=== PATIENT | female | born 1945 | race Caucasian/White ===

== ENCOUNTER 2018-07-10 03:19 | Inpatient (IN) ==
[2018-07-10] MEDS ORDERED: 0.9 % Sodium Chloride 1,000 ML IVC ONE (04:01)
[2018-07-10] MEDS ORDERED: Metoclopramide 10 MG/2 ML VIAL IVP ONE (04:03)
--- NOTE | 2018-07-10 04:10 | Emergency Department Note ---
Disposition Clinical Impression: Vertigo Nausea and vomiting Qualifiers: Vomiting type: unspecified Vomiting Intractability: non-intractable Qualified Code(s): R11.2 - Nausea with vomiting, unspecified Headache Qualifiers: Headache type: unspecified Headache chronicity pattern: acute headache Intractability: not intractable Qualified Code(s): R51 - Headache Disposition: Admitted As Inpatient Condition: Fair Referrals: Kenneth Nathan DO [Primary Care Provider] - Forms: ED Satisfaction Letter Time of Disposition: 06:28 Nausea/Vomiting/Diarrhea HPI - General Chief complaint: ED Nausea/Vomiting/Diarrhea Stated complaint: n v weakness Time Seen by Provider: 07/10/18 03:21 Source: patient, EMS Mode of arrival: EMS Limitations: no limitations Nursing Notes Reviewed: Yes Vital Signs Reviewed: Yes - History of Present Illness HPI Narrative: 73 y.o. female with PMHx significant for vertigo presents to the ED c/o sudden onset of nausea and vomiting x 1200 yesterday. She reports 5 episodes of vomit since onset and states it is dark green in color and non-bloody. She notes a small amount of LLQ abd pain at onset, but states it lasted only a short time and denies any abd pain now. She reports associated dizziness, diffuse headache , and fatigue. She reports generalized weakness, but denies any focal weakness or new onset neurological symptoms. She denies any recent travel, food poisoning , or sick contacts. Pt Subjective Complaint: nausea, vomiting Onset (ago): hour(s) Description of emesis: food contents, bilious Associated Abdominal Pain: Yes (mild LLQ at onset, denies pain now) Associated symptoms: Reports: headaches, nausea/vomiting. Denies: chest pain, cough, diaphoresis, fever/chills, shortness of breath - Related Data Home Medications Medication Instructions Recorded Confirmed Buspirone HCl 03/15/17 Gabapentin [Gralise] 03/15/17 Hydrochlorothiazide 03/15/17 Lorazepam 03/15/17 Losartan mg PO DAILY 03/15/17 Metoprolol [Lopressor] 03/15/17 Oxycodone HCl/Acetaminophen 10 mg PO BID 03/15/17 03/15/17 Simvastatin 03/15/17 Venlafaxine HCl [Venlafaxine HCl 03/15/17 ER] Previous Rx's Medication Instructions Recorded Albuterol Sulfate [Albuterol 2 puff IH QID #1 inhaler 03/15/17 Inhaler] Azithromycin [Azithromycin 6-Tab 250 mg PO PER PKG DI #6 tab 03/15/17 Pack] Benzonatate [Tessalon] 200 mg PO TID PRN #20 capsule 03/15/17 predniSONE [PredniSONE] 20 mg PO BID #10 tablet 03/15/17 Allergies Allergy/AdvReac Type Severity Reaction Status Date / Time Penicillins [PCN] Allergy Rash Verified 03/15/17 19:20 Sulfa (Sulfonamide Allergy Rash Verified 03/15/17 19:20 Antibiotics) All systems ED: reviewed and negative except as stated. Past Medical History - Past Medical History Attestation: Yes The following information was validated with the patient. Source: patient Medical history: Reports: arthritis, fibromyalgia, hyperlipidemia, hypertension - Social History Smoking Status: Never smoker Smokeless Tobacco Status: No Alcohol use: Reports: none Drug use: Reports: none Physical Exam - General Limitations: no limitations General appearance: alert, in no apparent distress - Head Head exam: atraumatic, normocephalic, normal inspection - Eye Eye exam: Present: normal appearance, PERRL, EOMI - ENT ENT exam: normal exam, normal oropharynx, mucous membranes moist - Neck Neck exam: Present: normal inspection, full ROM, trachea midline - Chest Chest inspection: Present: normal inspection, symmetric chest wall rise - Respiratory Respiratory exam: Present: normal lung sounds bilaterally - Cardiovascular Cardiovascular exam: Present: regular rate, normal rhythm, normal heart sounds - Abdominal Exam Abdominal exam: Present: soft, Non-Tender. Absent: tenderness, distention, guarding, rebound, rigidity - Extremities Exam Extremities exam: Present: normal inspection. Absent: tenderness, pedal edema - Neurological Exam Neurological exam: Present: alert, oriented X3, CN II-XII intact. Absent: motor sensory deficit - Expanded Neurological Exam Patient oriented to: Present: person, place Speech: Present: fluid speech Cranial nerves: EOM function (II, III, IV, ): Normal, facial sensation (V): Normal, facial palsy (VII): Normal, spinal accessory function (XI): Normal, tongue deviation (XII): Normal Cerebellar function: finger to nose: Normal, heel to cedeño: Abnormal Left, Abnormal Right (mild) Motor strength - LUE: 5/5 Motor strength - RUE: 5/5 Motor strength - LLE: 4/5 Motor strength - RLE: 4/5 Upper motor neuron exam: pronator drift: Absent bilaterally Sensory exam upper extremity: light touch: Normal Sensory exam lower extremity: light touch: Normal Coma Scale Eye Opening: Spontaneous Coma Scale Motor Response: Obeys Commands Coma Scale Verbal Response: Oriented Coma Scale Total: 15 - Psychiatric Psychiatric exam: Present: normal affect, normal mood - Skin Skin exam: Present: warm, dry, intact, normal color Course Course Narrative: Patient seen and examined. Complaining of nausea, vomiting, weakness and headache. She does not normally get headaches. Feels her nausea and vomiting is more secondary to this. She is also incidentally had 3 weeks now of intermittent vertigo. Also had an episode of blurry vision. Basic lab work was ordered. Also get a CT of the head. Neurologic exam shows possible mild ataxia in the left upper extremity. Unable to assess for ataxia in the lower extremities due to patient's severe arthritis in the knees. - Reevaluation(s) Reevaluation #1: Upon reexamination, patient is feeling slightly better with her headache and nausea. However states her nausea is coming back. Zofran ordered. Patient's lab work, imaging unremarkable. Due to the long duration of her symptoms as well as now having a headache without normally getting headaches, I am concerned about possible central cause of her vertigo. We will admit for MRI of the head to evaluate for possible cerebellar stroke. We will give a dose of aspirin here. I discussed with hospitalist Dr. Joseph who has accepted patient for admission. Time: 06:25 Vital Signs Temperature 98.3 F 07/10/18 03:25 Pulse Rate 64 07/10/18 03:25 Respiratory Rate 16 07/10/18 03:25 Blood Pressure 129/57 07/10/18 03:25 O2 Sat by Pulse Oximetry 95 07/10/18 03:25 Temperature 98.3 F 07/10/18 03:25 Pulse Rate 66 07/10/18 04:35 Respiratory Rate 18 07/10/18 04:35 Blood Pressure 128/80 07/10/18 04:35 O2 Sat by Pulse Oximetry 95 07/10/18 04:35 Oxygen Delivery Oxygen Delivery Room Air Nausea/Vomiting/Diarrhea - Medical Records Medical records reviewed: Yes I reviewed the patient's medical records. - Lab Data Lab results reviewed: Yes I reviewed the patient's lab results. Result diagrams: 07/10/18 03:35 07/10/18 03:35 Lab Results 07/10/18 07/10/18 Range/Units 03:35 03:35 WBC 11.8 H (4.3-11.1) K/mcL RBC 5.11 H (3.82-4.97) M/mcL Hgb 15.4 (11.5-15.4) g/dL Hct 45.1 H (35.3-44.9) % MCV 88.3 (83.0-100.0) fL MCH 30.1 (28.0-33.3) pg MCHC 34.1 (31.6-35.5) g/dL RDW 13.2 (11.5-14.5) % Plt Count 231 (140-400) K/mcL MPV 11.5 (9.4-12.4) fL Immature Gran % 0.5 (0-4) % Seg Neutrophils % 79.3 % Lymphocytes % 13.9 % Monocytes % 5.6 % Eosinophils % 0.4 % Basophils % 0.3 % Neutrophils # 9.4 H (1.6-8.9) K/mcL Lymphocytes # 1.6 (0.6-4.6) K/mcL Monocytes # 0.7 (0.0-1.3) K/mcL Eosinophils # 0.1 (0.0-0.6) K/mcL Basophils # 0.0 (0.0-0.2) K/mcL Sodium 136 (136-145) mEq/L Potassium 3.9 (3.5-5.1) mEq/L Chloride 101 (98-107) mEq/L Carbon Dioxide 21 L (23-29) mEq/L BUN 25 H (8-23) mg/dL Creatinine 1.03 (0.60-1.20) mg/dL Est GFR ( Amer) > 60 (> 60) Est GFR (Non-Af Amer) 53 L (> 60) BUN/Creatinine Ratio 24 (6-26) Glucose 158 H (70-105) mg/dL Calculated Osmolality 290 (280-300) Calcium 10.1 (8.6-10.3) mg/dL Total Bilirubin 0.8 (0.3-1.0) mg/dL AST 19 (13-39) Units/L ALT 22 (7-52) Units/L Alkaline Phosphatase 84 (34-104) Units/L Serum Total Protein 8.1 (6.4-8.9) g/dL Albumin 4.0 (3.5-5.7) g/dL Globulin 4.1 H (2.4-3.5) g/dL Albumin/Globulin Ratio 1.0 L (1.1-2.2) Lipase 17 (11-82) Units/L - Radiology Data Radiology results reviewed: Yes I reviewed the patient's radiology results. Head CT 07/10/18 04:42 IMPRESSION: Small vessel chronic ischemic changes without acute hemorrhage or definite evidence for acute ischemia. Small foci of acute ischemia cannot be excluded. D/ / Mikey Tidwell MD / Mikey Tidwell MD Interpreting Provider: Mikey Tidwell MD Attestation Statement - Attestation Attestation: I, Juan Weinstein, examined this patient and my medical decision-making was reviewed with the PLANT OPERATOR/PA/Advanced Practice Nurse/Resident Physician. I agree with the documented findings, disposition and treatment plan as described except to the extent set forth below. 73-year-old female presents emergency Department with concerns of vertigo. Patient states her symptoms have been intermittent over the past 2-3 weeks. Patient states the room will spin with minimal movement, lasting several minutes at a time before resolving. He will receive sure. The changes in medications. Patient has difficulty with ambulation secondary to her unsteadiness. No focal neurologic deficits prior to arrival. CT of the head was negative for acute mass or intracranial hemorrhage. Patient will be admitted to the hospital for further care and evaluation of her vertigo to rule out posterior CVA or other pathology.
[2018-07-10 04:17] LABS: Basophils % 0.3 %; Eosinophils # 0.1 K/mcL (0.0-0.6); Eosinophils % 0.4 %; Hematocrit 45.1 % (35.3-44.9); Hemoglobin 15.4 g/dL (11.5-15.4); Immature Granulocytes % 0.5 % (0-4); Lymphocytes # 1.6 K/mcL (0.6-4.6); Lymphocytes % 13.9 %; Mean Corpuscular HGB Conc 34.1 g/dL (31.6-35.5); Mean Corpuscular Hemoglobin 30.1 pg (28.0-33.3); Mean Corpuscular Volume 88.3 fL (83.0-100.0); Mean Platelet Volume 11.5 fL (9.4-12.4); Monocytes # 0.7 K/mcL (0.0-1.3); Monocytes % 5.6 %; Neutrophils # 9.4 K/mcL (1.6-8.9); Platelet Count 231 K/mcL (140-400); Red Blood Count 5.11 M/mcL (3.82-4.97); Red Cell Distribution Width 13.2 % (11.5-14.5); Segmented Neutrophils % 79.3 %
[2018-07-10 04:26] LABS: Alanine Aminotransferase 22 Units/L (7-52); Alkaline Phosphatase 84 Units/L (34-104); Aspartate Amino Transferase 19 Units/L (13-39); BUN/Creatinine Ratio 24 (6-26); Bilirubin,Total 0.8 mg/dL (0.3-1.0); Blood Urea Nitrogen 25 mg/dL (8-23); Calcium 10.1 mg/dL (8.6-10.3); Carbon Dioxide 21 mEq/L (23-29); Chloride 101 mEq/L (98-107); Globulin 4.1 g/dL (2.4-3.5); Glucose 158 mg/dL (70-105); Lipase 17 Units/L (11-82); Osmolality,Calculated 290 (280-300); Potassium 3.9 mEq/L (3.5-5.1); Sodium 136 mEq/L (136-145); Total Protein 8.1 g/dL (6.4-8.9); eGFR For Non-African Americans 53 (> 60)
[2018-07-10] MEDS ORDERED: Ondansetron 4 MG/2 ML VIAL IVP ONE (05:48)
[2018-07-10] MEDS ORDERED: Aspirin 325 MG TABLET PO ONE (05:52)
[2018-07-10] MEDS ORDERED: *HR* OxyCODONE Immed Rel 5 MG TABLET PO PRN (08:01)
[2018-07-10] MEDS ORDERED: Naloxone 0.4 MG/ML INJ IVP PRN (08:01)
[2018-07-10] MEDS ORDERED: Acetaminophen 325 MG TABLET PO PRN (08:01)
--- NOTE | 2018-07-10 08:35 | Internal Med History&Physical ---
Date of Encounter: 07/10/18 Time of Encounter: 08:53 Internal Medicine - H&P: HPI Chief complaint: Vertigo Admitted From: Home Plans for Post Hospital Care: Home History of present illness: Ms. Porras is a 73 year old female with PMH of Anxiety/Depression HLD, HTN , chronic back pain who presented with 3 weeks onset of vertigo and one-day history of nausea and vomiting. She reports history of vertigo which started 3 weeks ago while at rest, and the flat. She however does not associate it with any air heat, tinnitus, or ear discharge. She reports having chronic"runny" ears, but no hx of chronic ear infection. She denies imbalance in gait but does not walk more than few feet to the bathroom and back due to her chornic back pain and Left lower leg injury in the past. She denies any speech/motor or sensory complains, she has no confusion She denies chest, cardiac, gastrointestinal, or urologic symptoms. Workup in the ER showed mild leukocytosis, otherwise unremarkable. Head CT shows chronic microvascular changes but cannot rule out a small foci of infarct. She is placed on observation to rule out a posterior circulation stroke. At the time of review, she is currently asymptomatic. Past Med Surg Social Fam HX - Past Medical History Medical history: arthritis, fibromyalgia, hyperlipidemia, hypertension - Social History Smoking Status: Never smoker Smokeless Tobacco Status: No Alcohol use: none Drug use: none Internal Medicine - H&P: Meds Albuterol Sulfate [Albuterol Inhaler] 2 puff IH QID #1 inhaler 03/15/17 [Rx] Buspirone HCl [Buspar] 15 mg PO BID 03/15/17 [History] LORazepam [Ativan] 0.5 mg PO TID PRN 03/15/17 [History] Losartan Potassium [Cozaar] 100 mg PO DAILY 03/15/17 [History] OxyCODONE/APAP 10/325 [Percocet 10/325 MG] 0.5 - 1 tab PO BID PRN 03/15/17 [ History] Simvastatin [Zocor] 20 mg PO DAILY 03/15/17 [History] hydroCHLOROthiazide [Hydrochlorothiazide] 25 mg PO DAILY 03/15/17 [History] Gabapentin [Neurontin] 300 mg PO BID 07/10/18 [History] Metoprolol Tartrate 50 mg PO TID 07/10/18 [History] Venlafaxine [Effexor] 75 mg PO BID 07/10/18 [History] 3 Allergy/AdvReac Type Severity Reaction Status Date / Time Penicillins [PCN] Allergy Rash Verified 07/10/18 09:16 Sulfa (Sulfonamide Allergy Rash Verified 07/10/18 09:16 Antibiotics) All Systems PM: A 10-system review of systems was performed and is negative for pertinent findings except as documented above in the HPI. - Constitutional Constitutional: as per HPI - EENT Eyes: as per HPI Ears: as per HPI Nose, mouth and throat: as per HPI - Cardiovascular Cardiovascular ROS IM: as per HPI - Respiratory Respiratory: as per HPI - Gastrointestinal Gastrointestinal: as per HPI - Genitourinary Genitourinary: as per HPI - Musculoskeletal Musculoskeletal ROS IM: as per HPI - Integumentary Integumentary IM: as per HPI - Neurological Neurological ROS: as per HPI - Hematologic/Lymphatic Hematologic/Lymphatic: as per HPI - Constitutional Vitals: Temp Pulse Resp BP Pulse Ox 98.3 F 65 18 100/64 95 07/10/18 03:25 07/10/18 06:37 07/10/18 06:37 07/10/18 06:37 07/10/18 06:37 General appearance: Present: A&O X 3, morbidly obese, pleasant, no acute distress Exam: see exam details below - Head Head exam: Present: atraumatic, normocephalic - Eye Eye exam: Present: PERRL, conjuntiva pink, sclera anicteric. Absent: nystagmus Pupils: Present: PERRL - Neck Neck exam general surgery: Present: supple, trachea midline. Absent: lymphadenopathy - Respiratory Respiratory exam: Present: CTAB. Absent: accessory muscle use, rales, rhonchi, wheezes - Cardiovascular Cardiovascular exam: Present: RRR, +S1, +S2. Absent: diastolic murmur, gallop, rubs, systolic murmur - GI/Abdominal GI/Abdominal exam: Present: normal bowel sounds, soft, no peritoneal signs. Absent: distended, tenderness - Extremities Exam Extremities exam: Present: warm, radial pulses palpable and symmetrical. Absent : calf tenderness, cyanotic Additional comments: Chronic venostasis changes - Neurological Exam Neurological exam: Present: alert, CN II-XII intact, oriented X3, no focal deficits. Absent: pronater drift, facial droop, speech deficit Additional comments: Gait is not tested, patient is usually non-ambulatory Power is at least 3/5 in LE Power in UE is WNL, no drift She has no nystagmus she has no signs of cerebellar dysfunction. - Skin Skin exam: Present: dry, intact Internal Med - H&P Results - Labs CBC & Chem 7: 07/10/18 03:35 07/10/18 03:35 - Assessment and plan (1) CVA (cerebral vascular accident) Current Visit: Yes Status: Acute Assessment and plan: Patient who presented with vertigo of about 3 weeks duration but developed nausea and vomiting and worsening of her vertigo last night She ahs no speech deficits, no sensory or motor deficits at this time Brain MRi showed acute temporo-occipital infarct, right basal ganglia infarct as well as left basal ganglia Received ASA in the ER , full dose Continue ASA 81mg daily Lipitor 20mg HS Lipid panel a.m Carotid USS scheduled ECHO scheduled Monitor NIHSS Hold antihypertensives for now Continue to monitor PTOT eval requested Neurology consulted Qualifiers: Qualified Code(s): I63.9 - Cerebral infarction, unspecified (2) HTN (hypertension) Current Visit: Yes Status: Chronic Assessment and plan: Hold meds for now Qualifiers: Qualified Code(s): I10 - Essential (primary) hypertension (3) HLD (hyperlipidemia) Current Visit: Yes Status: Chronic Assessment and plan: continue home meds when confirmed Qualifiers: Qualified Code(s): E78.5 - Hyperlipidemia, unspecified (4) Nausea and vomiting Current Visit: Yes Status: Acute Assessment and plan: Dylon jhaverin Qualifiers: Qualified Code(s): R11.2 - Nausea with vomiting, unspecified (5) Vertigo Current Visit: Yes Status: Acute Assessment and plan: See CVA (6) Anxiety and depression Current Visit: Yes Status: Chronic Assessment and plan: continue home meds when confirmed - Time Spent With Patient Total time spent is greater than 50% in coordination of care (as documented) at patient's floor/unit and/or counseling patient:
[2018-07-10] MEDS ORDERED: *HR* LORazepam 2 MG/ML VIAL IVP ONE (09:40)
[2018-07-10] MEDS ORDERED: 0.9 % Sodium Chloride 1,000 ML IVC SCH (10:30)
[2018-07-10] MEDS: Gabapentin 300 MG CAPSULE PO SCH ×2 (12:05→21:00)
--- NOTE | 2018-07-10 12:17 | Neurology - Consult Note ---
<Marcela Barbosa P - Last Filed: 07/10/18 16:23> Date of Encounter: 07/10/18 Time of Encounter: 11:45 Assessment and Plan (1) CVA (cerebral vascular accident) Current Visit: Yes Status: Acute She has vertigo lasting for a few minutes with room spinning , this time she has worst vertigo associated with nausea and vomiting She has no focal neurological deficit, no slurring of speech She has problem with body balance , but vertigo and nausea/ vomiting has been resolved MRI brain: showed acute temporo-occipital infarct, right& left basal ganglia infarct Echo and carotid Doppler report awaited Plan : CTA head and neck ordered ordered aspirin and plavix Qualifiers: CVA mechanism: unspecified Qualified Code(s): I63.9 - Cerebral infarction, unspecified (2) Vertigo Current Visit: Yes Status: Acute The patient has on and off vertigo for last 3 weeks This time she has worst episode of vertigo, associated with nausea and vomiting She has problem with body balance She is symptomatically better now. She has no more nausea , vomiting and vertigo now. We are working on it (possibly stroke related vertigo: small acute infarct in temporoccipital lobe ) History of Present Illness Chief complaint: Vertigo HPI: Ms. Porras is a 73 year old female admitted to [facility] via ED for nausea, vomiting and vertigo .She is known patient of HTN ,chronic back pain who presented this time for vertigo associated with nausea ad multiple episodes of vomiting. She states that the vertigo lasted for about 1-2 minuets and she has had dizziness and the room was spinning. She had h/o on and off vertigo for last 3 weeks , but this time more severe vertigo with nausea and vomiting. She admits mild headache, neck pain and balance problem while walking , but muh better than before She denies any focal neurological deficit/ limb weakness, slurring of speech, tinnitus or ear fullness, fall injury , fever, palpitation or irregular heart rate ,SOB, chest pain. Today she was sleeping comfortably in bed , states that her symptoms are better than before . She doesn't have vertigo right now, no nausea and vomiting . Her BP 128/75 , pul 62, Tem 98 F, WBC 11.8, Na 136, K 3.9BUN 25, creatinine 1.03 , glucose 158 . Brain MRI:Small area of acute infarct within the left temporo-occipital lobe. Tiny infarct within right basal ganglia. Possible additional tiny infarct within left basal ganglia. No convincing evidence of hemorrhage.Chronic small vessel ischemic white matter disease and diffuse cerebral volume loss. CT head : Small vessel chronic ischemic changes without acute hemorrhage or definite evidence for acute ischemia. Small foci of acute ischemia cannot be ex cluded. Past Med Surg Social Fam HX - Past Medical History Medical history: arthritis, fibromyalgia, hyperlipidemia, hypertension Psychiatric history: anxiety, depression - Past Surgical History Surgical History: appendectomy, cancer surgery Additional surgical history: ortho surgery - Social History Smoking Status: Never smoker Smokeless Tobacco Status: No Alcohol use: none Drug use: none Medications and Allergies Albuterol Sulfate [Albuterol Inhaler] 2 puff IH QID #1 inhaler 03/15/17 [Rx] Buspirone HCl [Buspar] 15 mg PO BID 03/15/17 [History] LORazepam [Ativan] 0.5 mg PO TID PRN 03/15/17 [History] Losartan Potassium [Cozaar] 100 mg PO DAILY 03/15/17 [History] OxyCODONE/APAP 10/325 [Percocet 10/325 MG] 0.5 - 1 tab PO BID PRN 03/15/17 [ History] Simvastatin [Zocor] 20 mg PO DAILY 03/15/17 [History] hydroCHLOROthiazide [Hydrochlorothiazide] 25 mg PO DAILY 03/15/17 [History] Gabapentin [Neurontin] 300 mg PO BID 07/10/18 [History] Metoprolol Tartrate 50 mg PO TID 07/10/18 [History] Venlafaxine [Effexor] 75 mg PO BID 07/10/18 [History] 3 Allergy/AdvReac Type Severity Reaction Status Date / Time Penicillins [PCN] Allergy Rash Verified 07/10/18 09:16 Sulfa (Sulfonamide Allergy Rash Verified 07/10/18 09:16 Antibiotics) All Systems: The remainder of the systems were reviewed and are negative Physical Examination - Vital Signs Vital Signs: Initial Vital Signs Temp Pulse Resp BP Pulse Ox 98.3 F 64 16 129/57 95 07/10/18 03:25 07/10/18 03:25 07/10/18 03:25 07/10/18 03:25 07/10/18 03:25 - Constitutional General appearance: comfortable - Neurologic Sensorimotor examination: intact Detailed motor examination: full strength in all major muscle groups Motor examination - right side: 03/07: deltoids, biceps, triceps, wrist flexion, wrist extension, instrument processing tech, hip flexors, tibialis Anterior, quadriceps, toe extension (EHL), plantarflexion Motor examination - left side: 55: deltoids, biceps, triceps, wrist flexion, wrist extension, hip flexors, instrument processing tech, quadriceps Reflexes: Biceps: 2+, Triceps: 2+, Brachioradialis: 2+, Patella: 2+, Achilles: 2 + Mental Status Examination: awake, alert, oriented to person, oriented to place, oriented to time, follows commands appropriately, answers questions appropriately, no aphasia Cranial nerve examination: PERRL, EOMI, visual horan intact, sensory to face intact Cerebellar examination: no dysmetria, performs finger to nose and heel to cedeño symmetrically without ataxia Results - Laboratory Findings CBC and BMP: 07/10/18 03:35 07/10/18 03:35 Abnormal lab findings: Abnormal lab results WBC 11.8 K/mcL (4.3-11.1) H 07/10/18 03:35 RBC 5.11 M/mcL (3.82-4.97) H 07/10/18 03:35 Hct 45.1 % (35.3-44.9) H 07/10/18 03:35 Neutrophils # 9.4 K/mcL (1.6-8.9) H 07/10/18 03:35 Carbon Dioxide 21 mEq/L (23-29) L 07/10/18 03:35 BUN 25 mg/dL (8-23) H 07/10/18 03:35 Est GFR (Non-Af Amer) 53 (> 60) L 07/10/18 03:35 Glucose 158 mg/dL (70-105) H 07/10/18 03:35 Globulin 4.1 g/dL (2.4-3.5) H 07/10/18 03:35 Albumin/Globulin Ratio 1.0 (1.1-2.2) L 07/10/18 03:35 Consult Discharge Plan - Plan Referrals: Kenneth Nathan DO [Primary Care Provider] - <Shaheen Holland I - Last Filed: 07/11/18 14:42> Date of Encounter: 07/10/18 Assessment and Plan (1) CVA (cerebral vascular accident) Current Visit: Yes Status: Acute Pt was seen and examined, my medical decision was reviewed with the Resident Physician, I agree with the documented findings, disposition and treatment plas as described except to the extent set forth below No significant focal motor deficit noted on neurological examination considering MRI findings certainly we need to exclude the possibility of any embolic source in particularly she would need echocardiogram and carotid duplex , at the same time continue to monitor for any atrial fibrillation continue to monitor the blood pressure and blood sugar and keep it stable in the meantime continue on aspirin along with the Plavix Further recommendation will depend on the result of echocardiogram and carotid duplex We will follow the patient with you Shaheen Holland MD Qualifiers: CVA mechanism: embolism Laterality of affected vessel: unspecified History of Present Illness HPI: Ms. Porras is a 73 year old female All Systems: The remainder of the systems were reviewed and are negative Physical Examination - Vital Signs Vital Signs: Initial Vital Signs Temp Pulse Resp BP Pulse Ox 98.3 F 64 16 129/57 95 07/10/18 03:25 07/10/18 03:25 07/10/18 03:25 07/10/18 03:25 07/10/18 03:25 Results - Laboratory Findings CBC and BMP: 07/11/18 02:50 07/11/18 02:50 Abnormal lab findings: Abnormal lab results WBC 11.8 K/mcL (4.3-11.1) H 07/10/18 03:35 RBC 5.11 M/mcL (3.82-4.97) H 07/10/18 03:35 Hct 45.1 % (35.3-44.9) H 07/10/18 03:35 Neutrophils # 9.4 K/mcL (1.6-8.9) H 07/10/18 03:35 Carbon Dioxide 21 mEq/L (23-29) L 07/10/18 03:35 BUN 25 mg/dL (8-23) H 07/10/18 03:35 Est GFR (Non-Af Amer) 53 (> 60) L 07/10/18 03:35 Glucose 158 mg/dL (70-105) H 07/10/18 03:35 POC Glucose 104 mg/dL (70-99) H 07/10/18 11:57 Globulin 4.1 g/dL (2.4-3.5) H 07/10/18 03:35 Albumin/Globulin Ratio 1.0 (1.1-2.2) L 07/10/18 03:35
[2018-07-10] MEDS ORDERED: Isovue-370 500 ML INFUS..BTL IV ONE (12:28)
[2018-07-10 19:56] LABS: Bilirubin,Urine Negative (Negative); Blood,Urine Negative (Negative); Clarity,Urine Clear (Clear); Color,Urine Yellow (Yellow); Glucose,Urine (UA) Normal (Normal); Ketones,Urine Negative (Negative); Leukocyte Esterase,Urine Small (Negative); Nitrite,Urine Negative (Negative); Protein,Urine Negative (Neg-Trace); Specific Gravity,Urine 1.018 (1.010-1.025); Urobilinogen,Urine Normal (Normal)
[2018-07-10 19:58] LABS: Bacteria,Urine None Seen per hpf (None-Few); Hyaline Casts,Urine None Seen per lpf (None-Few); RBC,Urine 0-3 per hpf (0-3); Squamous Epithelial Cell,Urine Many per lpf (None-Few)
[2018-07-11] MEDS: *HR* LORazepam 0.5 MG TABLET PO PRN ×2 (00:44→22:00)
[2018-07-11] MEDS: *HR* OxyCODONE/APAP 10/325 TABLET PO PRN (04:38)
[2018-07-11 04:44] LABS: BUN/Creatinine Ratio 22 (6-26); Blood Urea Nitrogen 21 mg/dL (8-23); Calcium 9.1 mg/dL (8.6-10.3); Carbon Dioxide 24 mEq/L (23-29); Chloride 103 mEq/L (98-107); Glucose 89 mg/dL (70-105); Osmolality,Calculated 286 (280-300); Potassium 3.4 mEq/L (3.5-5.1); Sodium 137 mEq/L (136-145); eGFR For Non-African Americans 58 (> 60)
[2018-07-11 04:46] LABS: Chol/HDL Ratio 3.6 (0-4.9)
[2018-07-11 04:51] LABS: Basophils % 0.3 %; Eosinophils # 0.2 K/mcL (0.0-0.6); Eosinophils % 2.3 %; Hematocrit 41.4 % (35.3-44.9); Hemoglobin 13.7 g/dL (11.5-15.4); Immature Granulocytes % 0.5 % (0-4); Lymphocytes # 2.5 K/mcL (0.6-4.6); Mean Corpuscular HGB Conc 33.1 g/dL (31.6-35.5); Mean Corpuscular Hemoglobin 29.9 pg (28.0-33.3); Mean Corpuscular Volume 90.4 fL (83.0-100.0); Mean Platelet Volume 11.2 fL (9.4-12.4); Monocytes # 0.8 K/mcL (0.0-1.3); Monocytes % 9.2 %; Neutrophils # 5.2 K/mcL (1.6-8.9); Platelet Count 196 K/mcL (140-400); Red Blood Count 4.58 M/mcL (3.82-4.97); Red Cell Distribution Width 13.7 % (11.5-14.5); Segmented Neutrophils % 59.7 %
[2018-07-11] MEDS ORDERED: *HR* Enoxaparin 40 MG/0.4 ML SYRINGE SQ SCH (06:00)
[2018-07-11] MEDS: Gabapentin 300 MG CAPSULE PO SCH ×2 (09:16→22:00)
[2018-07-11] MEDS: Aspirin Enteric Coated 81 MG Tablet PO SCH (09:16)
--- NOTE | 2018-07-11 12:00 | Internal Med Progress Note ---
Hospitalist Progress Note - Encounter Date of Encounter: 07/11/18 Time of Encounter: 11:00 - Subjective Interval History: cont to deny any weakness, numbness, tingling. continued dizziness with ambulation and nausea. she refused cta head/neck bc she had it once before and dye made her sick, understand importance of imaging. agreeable to CUS. - Exam Vitals: Temp Pulse Resp BP Pulse Ox 98.5 F 64 18 131/60 95 07/11/18 07:47 07/11/18 07:47 07/11/18 07:47 07/11/18 07:47 07/11/18 07:47 Exam: General: awake, alert, appears stated age HEENT:EOM intact pupils equal, round, moist mucus membranes, clear oropharynx Neck: supple, trachea midline Cardiovascular:regular rate and rhythm, normal S1 & S2, no rubs,+systolic murmur heard best on right border, No JVD. no lower extremity edema Lungs:Normal breath sounds, no wheezes, or crackles. Normal respiratory effort Neurological: AAOx3, CN grossly intact, no focal deficits, clear speech, strength 5/5 throughout and sensation intact throughout all ext Skin:Normal color, no rash, no pallor - Assessment and Plan (1) CVA (cerebral vascular accident) Current Visit: Yes Status: Acute Assessment and Plan: Acute Temporo occipital CVA, R basaal ganglia CVA, L Basal Ganglia CVA She has vertigo but no speech deficits, no sensory or motor deficits at this time Head CT no acute findings Brain MRi showed acute temporo-occipital infarct, right basal ganglia infarct as well as left basal ganglia Received ASA in the ER , full dose Continue ASA 81mg daily Lipitor 20mg HS Lipid panel a.m Carotid USS scheduled- pending ECHO 07/11 EF 65%, indeterminant diastolic function, mild MR, Mild mitral stenosis , SUBOPTIMIZED PARTIALLY MOBILE ECHODENSITY ON LV SIDE OF MITRAL VALVE APPEARS SIMILAR TO MITRAL CALCIFICATION--ángel recommended Monitor NIHSS permissive HTN Continue to monitor PTOT eval requested Neurology consulted-cont asa + plavix, statin, CTA head and neck ordered but pt refused Cards consulted 07/11 for ángel to further evaluate density on mitral valve, d/w dr Sun and she will be put on scheduled for friday update provided to neuro awaiting neuro call back re ok to increase lovenox to therapeutic until confirm not thrombus from neuro prospective -pt update on echo results--she is agreeable to work up of stroek and ÁNGEL here-- but she would like to follow up with [facility] upon dc (2) Nausea and vomiting Current Visit: Yes Status: Acute Assessment and Plan: 2/2 acute occipato temporal CVA dizziness -Zofran prn (3) Vertigo Current Visit: Yes Status: Acute Assessment and Plan: See CVA (4) HTN (hypertension) Current Visit: Yes Status: Chronic Assessment and Plan: Hold meds for now permissive htn (5) HLD (hyperlipidemia) Current Visit: Yes Status: Chronic Assessment and Plan: continue hstatin (6) Anxiety and depression Current Visit: Yes Status: Chronic Assessment and Plan: continue home buspar, ativan,effexor (7) Chronic back pain greater than 3 months duration Current Visit: Yes Status: Chronic Assessment and Plan: takes percocet at home, cont -dose continued here -very uncomfortable in bed here- lido patch added DVT Prophylaxis: lovenox - Time Spent with Patient Total time spent is greater than 50% in coordination of care (as documented) at patient's floor/unit and/or counseling patient: Greater than 35 minutes Plan of Care Discussed with: patient Internal Medicine: Result - Labs CBC & Chem 7: 07/11/18 02:50 07/11/18 02:50 Labs: Short CBC 07/11/18 Range/Units 02:50 WBC 8.8 (4.3-11.1) K/mcL Hgb 13.7 D (11.5-15.4) g/dL Hct 41.4 (35.3-44.9) % Plt Count 196 (140-400) K/mcL Neutrophils # 5.2 (1.6-8.9) K/mcL BMP 07/11/18 02:50 Sodium 137 Potassium 3.4 L Chloride 103 Carbon Dioxide 24 BUN 21 Creatinine 0.94 Glucose 89 Calcium 9.1 Urine 07/10/18 Range/Units 19:20 Urine Color Yellow (Yellow) Urine Clarity Clear (Clear) Urine pH 6.0 (5.0-8.0) pH Units Ur Specific Sherrill 1.018 (1.010-1.025) Urine Protein Negative (Neg-Trace) mg/dL Urine Glucose (UA) Normal (Normal) mg/dL Consult Discharge Plan - Plan Referrals: Kenneth Nathan DO [Primary Care Provider] - (1) CVA (cerebral vascular accident) Qualifiers: CVA mechanism: unspecified Qualified Code(s): I63.9 - Cerebral infarction, unspecified (2) Nausea and vomiting Qualifiers: Vomiting type: unspecified Vomiting Intractability: non-intractable Qualified Code(s): R11.2 - Nausea with vomiting, unspecified (4) HTN (hypertension) Qualifiers: Hypertension type: essential hypertension Qualified Code(s): I10 - Essential (primary) hypertension (5) HLD (hyperlipidemia) Qualifiers: Hyperlipidemia type: unspecified Qualified Code(s): E78.5 - Hyperlipidemia, unspecified
[2018-07-11] MEDS: *HR* HYDROcodone/Acet 5/325 mg TABLET PO PRN ×2 (13:25→22:00)
[2018-07-11] MEDS ORDERED: Ondansetron 4 MG/2 ML VIAL IVP PRN (13:27)
--- NOTE | 2018-07-11 14:38 | Neurology - Consult Note ---
Date of Encounter: 07/14/18 Time of Encounter: 14:35 Assessment and Plan (1) CVA (cerebral vascular accident) Status: Acute This patient who apparently had an embolic infarct without any significant focal motor deficit noted to have significant abnormality on echocardiogram No evidence of any other focal abnormality considering abnormal echo finding patient probably need anticoagulation She would also need CHRISTIANO, carotid duplex is pending. PT evaluation for gait and balance training Continue to monitor the blood pressure and blood sugar We will follow the CHRISTIANO results CVA mechanism: occlusion Precerebral and cerebral artery: vertebral artery Code(s): I63.9 - Cerebral infarction, unspecified History of Present Illness HPI: Ms. Porras is a 73 year old female patient seen as an follow-up she does remain a stable no new focal motor weakness nausea vomiting is also decreased. Unable to get an angiogram, echo shows abnormal density on Mitral valve Past Med Surg Social Fam HX - Past Medical History Medical history: arthritis, fibromyalgia, hyperlipidemia, hypertension Psychiatric history: anxiety, depression - Past Surgical History Surgical History: appendectomy, cancer surgery Additional surgical history: ortho surgery - Social History Smoking Status: Never smoker Smokeless Tobacco Status: No Alcohol use: none Drug use: none Medications and Allergies Albuterol Sulfate [Albuterol Inhaler] 2 puff IH QID #1 inhaler 03/15/17 [Rx] Buspirone HCl [Buspar] 15 mg PO BID 03/15/17 [History] LORazepam [Ativan] 0.5 mg PO TID PRN 03/15/17 [History] Losartan Potassium [Cozaar] 100 mg PO DAILY 03/15/17 [History] OxyCODONE/APAP 10/325 [Percocet 10/325 MG] 0.5 - 1 tab PO BID PRN 03/15/17 [ History] hydroCHLOROthiazide [Hydrochlorothiazide] 25 mg PO DAILY 03/15/17 [History] Gabapentin [Neurontin] 300 mg PO BID 07/10/18 [History] Metoprolol Tartrate 50 mg PO TID 07/10/18 [History] Venlafaxine [Effexor] 75 mg PO BID 07/10/18 [History] Aspirin Enteric Coated [Aspirin EC] 81 mg PO DAILY 30 Days #30 tablet. [Rx] Atorvastatin [Lipitor] 40 mg PO HS 30 Days #30 tablet 07/13/18 [Rx] Clopidogrel [Plavix] 75 mg PO DAILY 30 Days #30 tablet 07/13/18 [Rx] 3 Allergy/AdvReac Type Severity Reaction Status Date / Time Penicillins [PCN] Allergy Rash Verified 07/10/18 09:16 Sulfa (Sulfonamide Allergy Rash Verified 07/10/18 09:16 Antibiotics) All Systems: The remainder of the systems were reviewed and are negative Physical Examination - Vital Signs Vital Signs: Initial Vital Signs Temp Pulse Resp BP Pulse Ox 98.3 F 64 16 129/57 95 07/10/18 03:25 07/10/18 03:25 07/10/18 03:25 07/10/18 03:25 07/10/18 03:25 - Constitutional General appearance: comfortable - Neurologic Detailed motor examination: grossly full strength in all extremities Detailed sensory examination: intact Reflexes: Biceps: 1+, Triceps: 1+, Brachioradialis: 1+, Patella: 1+, Achilles: 1 + Mental Status Examination: awake, alert, oriented to person, oriented to place, oriented to time, follows commands appropriately, answers questions appropriately, no agnosia, no aphasia, no aproxia Cranial nerve examination: PERRL, EOMI, visual horan intact, corneal reflexes brisk symmetrically, sensory to face intact, mastication intact, no facial asymmetry is present, no dysarthria, hearing is intact symmetrically, soft palate elevates bilaterally upon phonation, gag reflex intact, flexes SCM and trapezius muscles symmetrically with full power, tongue protrudes midline, no atrophy or facial fasiculations present Results - Laboratory Findings CBC and BMP: 07/13/18 04:21 07/11/18 02:50 Abnormal lab findings: Abnormal lab results Potassium 3.4 mEq/L (3.5-5.1) L 07/11/18 02:50 Est GFR (Non-Af Amer) 58 (> 60) L 07/11/18 02:50 Globulin 4.1 g/dL (2.4-3.5) H 07/10/18 03:35 Albumin/Globulin Ratio 1.0 (1.1-2.2) L 07/10/18 03:35 HDL Cholesterol 38 mg/dL (40-59) L 07/11/18 02:50 Ur Leukocyte Esterase Small (Negative) H 09/07/18 19:20 Urine Microscopic WBC 5-15 per hpf (0-3) H 07/10/18 19:20 Ur Squamous Epith Cells Many per lpf (None-Few) H 07/10/18 19:20 Ur Culture Indicated? NO. (NO) A 07/10/18 19:20 Consult Discharge Plan - Plan Instructions: Ischemic Stroke (DC), Ischemic Stroke (GEN), Ischemic Stroke, Manager Pulmonary (GEN) Referrals: Kenneth Nathan DO [Primary Care Provider] - 07/20/18 1:00 pm Prescriptions: Aspirin Enteric Coated [Aspirin EC] 81 mg PO DAILY 30 Days #30 tablet. Atorvastatin [Lipitor] 40 mg PO HS 30 Days #30 tablet Clopidogrel [Plavix] 75 mg PO DAILY 30 Days #30 tablet
[2018-07-11] MEDS: *HR* Enoxaparin 120 MG/0.8 ML SYRINGE SQ SCH (16:55)
[2018-07-12] MEDS ORDERED: Melatonin 3 MG TABLET PO ONE (00:27)
[2018-07-12] MEDS: *HR* OxyCODONE/APAP 10/325 TABLET PO PRN (03:22)
[2018-07-12] MEDS: *HR* Enoxaparin 120 MG/0.8 ML SYRINGE SQ SCH ×2 (05:28→18:04)
--- NOTE | 2018-07-12 07:41 | Internal Med Progress Note ---
Hospitalist Progress Note - Encounter Date of Encounter: 07/12/18 Time of Encounter: 09:00 - Subjective Interval History: Dizziness persists, nausea improving. no numbness, tingling, weakness or speech changes. no holt, cp, palpitations. - Exam Vitals: Temp Pulse Resp BP Pulse Ox 98.4 F 100 17 112/72 92 07/12/18 02:41 07/12/18 02:41 07/12/18 02:41 07/12/18 02:41 07/12/18 02:41 Exam: General: awake, alert, appears stated age HEENT:EOM intact pupils equal, round Cardiovascular:regular rate and rhythm, normal S1 & S2, no rubs,+systolic murmur heard best on right border, No JVD. no lower extremity edema Lungs:Normal breath sounds, no wheezes, or crackles. Normal respiratory effort Neurological: AAOx3, CN grossly intact, no focal deficits, clear speech, strength 5/5 throughout and sensation intact throughout all ext Skin:Normal color, no rash, no pallor - Assessment and Plan (1) CVA (cerebral vascular accident) Current Visit: Yes Status: Acute Assessment and Plan: Acute Temporo occipital CVA, R basaal ganglia CVA, L Basal Ganglia CVA She has vertigo but no speech deficits, no sensory or motor deficits at this time Head CT no acute findings Brain MRi showed acute temporo-occipital infarct, right basal ganglia infarct as well as left basal ganglia Received ASA in the ER , full dose Continue ASA daily +Lipitor HS ECHO 07/11 EF 65%, indeterminant diastolic function, mild MR, Mild mitral stenosis , SUBOPTIMIZED PARTIALLY MOBILE ECHODENSITY ON LV SIDE OF MITRAL VALVE APPEARS SIMILAR TO MITRAL CALCIFICATION--ángel recommended Monitor NIHSS permissive HTN (has been normotensive) PTOT eval Neurology consulted-cont asa + plavix, statin, CTA head and neck ordered but pt refused 07/[address] Youssef--ok to dc plavix and treat with therapeutic lovenox awaiting ÁNGEL to confirm if density on echo is thrombus Cards consulted 07/11 for ángel to further evaluate density on mitral valve, d/w dr Sun and she will be put on scheduled for friday -pt update on echo results--she is agreeable to work up of stroke and ÁNGEL here-- but she would like to follow up with [facility] upon dc Carotid USS scheduled- pending (2) Nausea and vomiting Current Visit: Yes Status: Acute Assessment and Plan: 2/2 acute CVA residual dizziness -Zofran prn (3) Vertigo Current Visit: Yes Status: Acute Assessment and Plan: See CVA (4) HTN (hypertension) Current Visit: Yes Status: Chronic Assessment and Plan: Hold meds for now permissive htn -has been normotensive without home meds (5) HLD (hyperlipidemia) Current Visit: Yes Status: Chronic Assessment and Plan: continue statin (6) Anxiety and depression Current Visit: Yes Status: Chronic Assessment and Plan: continue home buspar, ativan,effexor (7) Chronic back pain greater than 3 months duration Current Visit: Yes Status: Chronic Assessment and Plan: takes percocet at home, cont -dose continued here -very uncomfortable in bed here- lido patch added DVT Prophylaxis: lovenox - Time Spent with Patient Total time spent is greater than 50% in coordination of care (as documented) at patient's floor/unit and/or counseling patient: 25 - 35 minutes Plan of Care Discussed with: patient Internal Medicine: Result - Labs CBC & Chem 7: 07/11/18 02:50 07/11/18 02:50 Consult Discharge Plan - Plan Referrals: Kenneth Nathan DO [Primary Care Provider] - (1) CVA (cerebral vascular accident) Qualifiers: CVA mechanism: embolism Laterality of affected vessel: unspecified (2) Nausea and vomiting Qualifiers: Vomiting type: unspecified Vomiting Intractability: non-intractable Qualified Code(s): R11.2 - Nausea with vomiting, unspecified (4) HTN (hypertension) Qualifiers: Hypertension type: essential hypertension Qualified Code(s): I10 - Essential (primary) hypertension (5) HLD (hyperlipidemia) Qualifiers: Hyperlipidemia type: unspecified Qualified Code(s): E78.5 - Hyperlipidemia, unspecified
[2018-07-12] MEDS: Gabapentin 300 MG CAPSULE PO SCH ×2 (08:49→20:19)
[2018-07-12] MEDS: Aspirin Enteric Coated 81 MG Tablet PO SCH (08:49)
[2018-07-12] MEDS: *HR* HYDROcodone/Acet 5/325 mg TABLET PO PRN (18:13)
[2018-07-12] MEDS: *HR* LORazepam 0.5 MG TABLET PO PRN (20:19)
[2018-07-13 05:11] LABS: Hematocrit 39.1 % (35.3-44.9); Mean Corpuscular HGB Conc 33.2 g/dL (31.6-35.5); Mean Corpuscular Hemoglobin 29.9 pg (28.0-33.3); Mean Corpuscular Volume 89.9 fL (83.0-100.0); Mean Platelet Volume 11.2 fL (9.4-12.4); Platelet Count 181 K/mcL (140-400); Red Blood Count 4.35 M/mcL (3.82-4.97); Red Cell Distribution Width 13.3 % (11.5-14.5)
[2018-07-13 05:12] LABS: INR 1.1; Prothrombin Time 12.7 Seconds (9.4-12.1)
[2018-07-13] MEDS: *HR* Enoxaparin 120 MG/0.8 ML SYRINGE SQ SCH (05:27)
--- NOTE | 2018-07-13 08:43 | Internal Med Progress Note ---
Hospitalist Progress Note - Encounter Date of Encounter: 07/13/18 Time of Encounter: 09:05 - Subjective Interval History: no dizziness or nausea. no weakness, numbness, speech changes or paralysis. feeling at baseline awaiting ÁNGEL - Exam Vitals: Temp Pulse Resp BP Pulse Ox 98.7 F 90 19 130/86 93 07/13/18 07:11 07/13/18 07:11 07/13/18 07:11 07/13/18 07:11 07/13/18 07:11 Exam: General: awake, alert, appears stated age HEENT:EOM intact pupils equal, round Cardiovascular:regular rate and rhythm, normal S1 & S2, no rubs,+systolic murmur heard best on right border, Lungs:Normal breath sounds, no wheezes, or crackles. Normal respiratory effort Neurological: AAOx3, CN grossly intact, no focal deficits, clear speech, strength 5/5 throughout and sensation intact throughout all ext Skin:Normal color, no rash, no pallor - Assessment and Plan (1) CVA (cerebral vascular accident) Current Visit: Yes Status: Acute Assessment and Plan: Acute Temporo occipital CVA, R basaal ganglia CVA, L Basal Ganglia CVA She has vertigo but no speech deficits, no sensory or motor deficits at this time Head CT no acute findings Brain MRi showed acute temporo-occipital infarct, right basal ganglia infarct as well as left basal ganglia Received ASA in the ER , full dose Continue ASA daily +Lipitor HS ECHO 07/11 EF 65%, indeterminant diastolic function, mild MR, Mild mitral stenosis , SUBOPTIMIZED PARTIALLY MOBILE ECHODENSITY ON LV SIDE OF MITRAL VALVE APPEARS SIMILAR TO MITRAL CALCIFICATION--ángel recommended Monitor NIHSS permissive HTN (has been normotensive) PTOT eval Neurology consulted-cont asa + plavix, statin, CTA head and neck ordered but pt refused 07/[address] Youssef--ok to dc plavix and treat with therapeutic lovenox awaiting ÁNGEL to confirm if density on echo is thrombus Cards consulted 07/11 for ángel to further evaluate density on mitral valve, d/w dr Sun and she will be put on scheduled for friday 07/13 -pt update on echo results--she is agreeable to work up of stroke and ÁNGEL here-- but she would like to follow up with [facility] upon dc -Carotid US normal -ÁNGEL 07/13 (2) Nausea and vomiting Current Visit: Yes Status: Acute Assessment and Plan: 2/2 acute CVA residual dizziness -Zofran prn (3) Vertigo Current Visit: Yes Status: Acute Assessment and Plan: See CVA (4) HTN (hypertension) Current Visit: Yes Status: Chronic Assessment and Plan: Hold meds for now permissive htn -has been normotensive without home meds (5) HLD (hyperlipidemia) Current Visit: Yes Status: Chronic Assessment and Plan: continue statin (6) Anxiety and depression Current Visit: Yes Status: Chronic Assessment and Plan: continue home buspar, ativan,effexor (7) Chronic back pain greater than 3 months duration Current Visit: Yes Status: Chronic Assessment and Plan: takes percocet at home, cont -dose continued here -very uncomfortable in bed here- lido patch added DVT Prophylaxis: lovenox - Time Spent with Patient Total time spent is greater than 50% in coordination of care (as documented) at patient's floor/unit and/or counseling patient: 25 - 35 minutes Plan of Care Discussed with: patient Internal Medicine: Result - Labs CBC & Chem 7: 07/13/18 04:21 07/11/18 02:50 Labs: Short CBC 07/13/18 Range/Units 04:21 WBC 7.8 (4.3-11.1) K/mcL Hgb 13.0 (11.5-15.4) g/dL Hct 39.1 (35.3-44.9) % Plt Count 181 (140-400) K/mcL - ABG Interpretation ABG results: PT/INR, D-dimer PT 12.7 Seconds (9.4-12.1) H 07/13/18 04:21 Consult Discharge Plan - Plan Referrals: Kenneth Nathan DO [Primary Care Provider] - 07/20/18 1:00 pm (1) CVA (cerebral vascular accident) Qualifiers: CVA mechanism: embolism Laterality of affected vessel: unspecified (2) Nausea and vomiting Qualifiers: Vomiting type: unspecified Vomiting Intractability: non-intractable Qualified Code(s): R11.2 - Nausea with vomiting, unspecified (4) HTN (hypertension) Qualifiers: Hypertension type: essential hypertension Qualified Code(s): I10 - Essential (primary) hypertension (5) HLD (hyperlipidemia) Qualifiers: Hyperlipidemia type: unspecified Qualified Code(s): E78.5 - Hyperlipidemia, unspecified
[2018-07-13] MEDS: Gabapentin 300 MG CAPSULE PO SCH ×2 (09:40→14:11)
[2018-07-13] MEDS: Aspirin Enteric Coated 81 MG Tablet PO SCH ×2 (09:40→14:11)
--- NOTE | 2018-07-13 09:53 | Event Note ---
Date of Encounter: 07/13/18 Time of Encounter: 09:44 - Cardiology Event Note Per discussion with Dr. Juan Sun cardiology consulted for abnormal surface echo and need for CHRISTIANO per primary group patient agreeable. Patient diagnosed with CVA CHRISTIANO ordered this morning. Further recommendations to follow. Head CT 07/10/18 04:42 IMPRESSION: Small vessel chronic ischemic changes without acute hemorrhage or definite evidence for acute ischemia. Small foci of acute ischemia cannot be excluded. D/ / Mikey Tidwell MD / Mikey Tidwell MD Interpreting Provider: Mikey Tidwell MD Brain MRI 07/10/18 08:05 IMPRESSION: 1. Small area of acute infarct within left temporo-occipital lobe. Tiny infarct within right basal ganglia. Possible additional tiny infarct within left basal ganglia. No convincing evidence of hemorrhage. 2. Chronic small vessel ischemic white matter disease and diffuse cerebral volume loss. The findings were sent to the Radiology Results Communication Center at 10:16 am on 07/10/2018to be communicated to a licensed caregiver. D/ / 07/10/2018 10:52:38 Shahbaz Lubni MD / jesse Interpreting Provider: Shahbaz Lubin MD Echocardiogram 07/10/18 10:27 Impressions: LVEF 65%. Indeterminate diastolic function. Normal right ventricular structure and function. Mild mitral regurgitation. Dense mitral annular calcification. Mitral valve leaflets are not well visualized. Mild mitral stenosis by gradient, 4 mmHg at 80 bpm. There is a suboptimally visualized, partially mobile echodensity seen only on the LV side of the mitral valve. Tissue density appears similar to mitral calcification seen. Etiology is unclear. In the setting of acute cerebral infarct, recommend CHRISTIANO for further evaluation. Unable to estimate RVSP. IVC is normal in size.
[2018-07-13] MEDS ORDERED: Naloxone 0.4 MG/ML INJ ONE (10:24)
[2018-07-13] MEDS ORDERED: *HR* FentaNYL (PF) 100 MCG/2 ML VIAL ONE (10:24)
[2018-07-13] MEDS ORDERED: *HR* Midazolam HCl 5 MG/5 ML VIAL IVP ONE ×2 (10:25→11:09)
[2018-07-13 12:34] VITALS: BP 125/63
--- NOTE | 2018-07-13 15:27 | Discharge Summary ---
- NOTES TO OUTPATIENT PROVIDER Notes to Outpatient Provider: She MUST follow up with Neurology. She refused CTA head/nck or MRA head/nck due to uncomofrtable med s/es in past. She is aware stroke work up is NOT complete and would like to follow up with Neurology at [facility]. Please refer pt for close follow up. She should be seen by neuro in the next 3-4 weeks. Discharged on asa, statin, plavix. Heart monitor placed by cards. They will call her if remote read is abnormal and schedule her to see Dr Dawson at that time. Orders not resulted at time of discharge: Pending orders 07/11/18 05:37 EKG [ECG 12 lead ECG] [ECG] Stat 07/13/18 15:21 ECG event monitor 4 weeks [ECG] Routine Date of Encounter: 07/13/18 Time of Encounter: 09:05 - Discharge Diagnosis (1) CVA (cerebral vascular accident) Priority: Primary Status: Acute Assessment and Plan: Acute Temporo occipital CVA, R basaal ganglia CVA, L Basal Ganglia CVA She has vertigo but no speech deficits, no sensory or motor deficits Head CT no acute findings Brain MRi showed acute temporo-occipital infarct, right basal ganglia infarct as well as left basal ganglia SHE REFUSES MRA HEAD/NECK OR CTA HEAD/NECK DUE TO UNCOMOFRTABLE S/E FROM DYE ADMINISTRATION IN PAST. SHE UNDERSTANDS THAT SOURCE OF HER CVA CANNOT BE FULLY ASSESSED WITHOUT THIS CUS normal Received ASA in the ER , full dose Continue ASA daily +Lipitor HS permissive HTN (has been normotensive) Neurology followed-cont asa +statin, start plavix, CTA head and neck ordered but pt refused but pt refused ECHO 07/11 EF 65%, indeterminant diastolic function, mild MR, Mild mitral stenosis , SUBOPTIMIZED PARTIALLY MOBILE ECHODENSITY ON LV SIDE OF MITRAL VALVE APPEARS SIMILAR TO MITRAL CALCIFICATION--ángel recommended 07/[address] Youssef of [facility] finding--ok to dc plavix and treat with therapeutic lovenox awaiting [facility]NG[facility] to confirm if density on echo is thrombus Cards consulted 07/11 for ángel to further evaluate density on mitral valve, d/w dr Sun and she will be put on scheduled for friday 07/13 -07/13: ÁNGEL 07/13 as d/w Dr Silva by phone: finding most c/w calcified cords of MV, trace MV regurgitation, no thrombus, no pfo. Monitor palced for pt to watch for Afib and he will remotely review outpt. If any abnormal findings on outpt tel monitoring his office will contact her for follow up -Pt is aware at discharge that source of her CVA cannot be identified without angio imaging of head. She verbalized understanding and was informed in detail that without knowledge of source of stroke or appearance of IC vascular system worse or repeat stroke is possible. Warning signs of stroke reviewed with pt and her . To notify physician immediately or go to ED with any sxs. -Neurology updated to [facility]NGEL findings -will dc pt to home with asa + plavix + statin -she declines follow up here and will be setting up neuro follow up at [facility] in [place]. She will see pcp within a week and receive referral from there Comments: please note that without CTA head and neck (which pt refused) the qualifiers of location of occlusion and type of occlusion are anticipated to be as documented , Qualifiers: CVA mechanism: occlusion Precerebral and cerebral artery: vertebral artery Laterality of affected vessel: left Qualified Code(s): I63.212 - Cerebral infarction due to unspecified occlusion or stenosis of left vertebral artery (2) Nausea and vomiting Priority: Primary Status: Acute Assessment and Plan: 2/2 acute CVA residual dizziness symptoms have since resolved prn zofran odt on dc Qualifiers: Vomiting type: unspecified Vomiting Intractability: non-intractable Qualified Code(s): R11.2 - Nausea with vomiting, unspecified (3) Vertigo Priority: Primary Status: Acute Assessment and Plan: See CVA (4) HTN (hypertension) Priority: Secondary Status: Chronic Assessment and Plan: Held meds for permissive htn -may resume home meds upon dc to home -close pcp follow up Qualifiers: Hypertension type: essential hypertension Qualified Code(s): I10 - Essential (primary) hypertension (5) HLD (hyperlipidemia) Priority: Secondary Status: Chronic Assessment and Plan: continue statin Qualifiers: Hyperlipidemia type: unspecified Qualified Code(s): E78.5 - Hyperlipidemia , unspecified (6) Anxiety and depression Priority: Secondary Status: Chronic Assessment and Plan: continue home buspar, ativan,effexor (7) Chronic back pain greater than 3 months duration Priority: Secondary Status: Chronic Assessment and Plan: takes percocet at home, cont Hospital course: Ms. Porras is a 73 year old female who presented with dizziness and nasue and was found to have acute CVA. Full details of work up and treament are detailed in assessment and plan above. Work up included carotid US, TTE, followed by [facility] to further identify a mobile echodenisity on LV side of MV, neuro and cards evals. She refused to ahve any angio imaging of head and neck done and understands risk of not clearly identifying source of CVA and condition of intracranial vasculature prior to dc. She has been counselled on warning signs of CVA. She will follow up closely with pcp, with appt made, and will be referred to [facility] from there, ideally being seen in the next 3-[address] Dawson of cardio placed ambulatory heart monitor and will read remotely , contacting pt for f/u if abnormal. DC to home in stable condition with close fu on asa + high intensity statin + plavix. No tpa this admission as she was outside of the window for treatment. No thrombectomy as she was outside window and additionally refused CTA head/neck or any other angio imaging with dye as above. Discharge discussed with: patient - Time Spent with Patient Total time spent providing and/or coordinating discharge services: Greater than 30 minutes - Discharge Medications Prescriptions: Aspirin Enteric Coated [Aspirin EC] 81 mg PO DAILY 30 Days #30 tablet. Atorvastatin [Lipitor] 40 mg PO HS 30 Days #30 tablet Clopidogrel [Plavix] 75 mg PO DAILY 30 Days #30 tablet Home Medications: Albuterol Sulfate [Albuterol Inhaler] 2 puff IH QID #1 inhaler 03/15/17 [Rx] Buspirone HCl [Buspar] 15 mg PO BID 03/15/17 [History] LORazepam [Ativan] 0.5 mg PO TID PRN 03/15/17 [History] Losartan Potassium [Cozaar] 100 mg PO DAILY 03/15/17 [History] OxyCODONE/APAP 10/325 [Percocet 10/325 MG] 0.5 - 1 tab PO BID PRN 03/15/17 [ History] hydroCHLOROthiazide [Hydrochlorothiazide] 25 mg PO DAILY 03/15/17 [History] Gabapentin [Neurontin] 300 mg PO BID 07/10/18 [History] Metoprolol Tartrate 50 mg PO TID 07/10/18 [History] Venlafaxine [Effexor] 75 mg PO BID 07/10/18 [History] Aspirin Enteric Coated [Aspirin EC] 81 mg PO DAILY 30 Days #30 tablet. [Rx] Atorvastatin [Lipitor] 40 mg PO HS 30 Days #30 tablet 07/13/18 [Rx] Clopidogrel [Plavix] 75 mg PO DAILY 30 Days #30 tablet 07/13/18 [Rx] Allergies/Adverse Reactions: 3 Allergy/AdvReac Type Severity Reaction Status Date / Time Penicillins [PCN] Allergy Rash Verified 07/10/18 09:16 Sulfa (Sulfonamide Allergy Rash Verified 07/10/18 09:16 Antibiotics) Date of admission: 07/10/18 11:02 Primary care physician: Rodolfo Nathan DO Consults: Dr Silva Cardiology for ÁNGEL and Dr Youssef Neurology for CVA Discharging clinician: Kori Burton - Constitutional Vitals: Temp Pulse Resp BP Pulse Ox 98.8 F 78 16 125/63 94 07/13/18 12:33 07/13/18 12:33 07/13/18 12:33 07/13/18 12:33 07/13/18 12:33 General appearance: Present: A&O X 3, morbidly obese, pleasant, no acute distress Exam: General: awake, alert, appears stated age HEENT:EOM intact pupils equal, round Cardiovascular:regular rate and rhythm, normal S1 & S2, no rubs,+systolic murmur heard best on right border, Lungs:Normal breath sounds, no wheezes, or crackles. Normal respiratory effort Neurological: AAOx3, CN grossly intact, no focal deficits, clear speech, strength 5/5 throughout and sensation intact throughout all ext Skin:Normal color, no rash, no pallor - Patient Status Disposition: Home, Self-Care Condition: Good Overall status at discharge: patient is back to baseline - Discharge Instructions Follow Up With: Kenneth Nathan DO [Primary Care Provider] - 07/20/18 1:00 pm
--- NOTE | 2018-07-13 15:40 | Cardiology Consult Note ---
Date of Encounter: 07/13/18 Time of Encounter: 14:30 Assessment and Plan (1) Ischemic stroke Current Visit: Yes Status: Acute unclear microvascular or embolic etiology, peer review of MRI may help. no evidence of PFO, mobile aortic arch atheroma need event monitor to r/o paroxysmal atrial fibrillation (2) Abnormal echocardiogram Current Visit: Yes Status: Acute A mobile cord like structure attached to posterior mitral leaflet with calcification in the head, no significant hemodynamic significance. - likely a ruptured or redudant chordae with calcification. - The significance of the finding is unclear, likely chronic given calcification. The relationship with the stroke is not established. If the stroke is of microvascular etiology, then the echo finding represents an incidental finding. The risk of embolus from the structure is undetermined. - Recommend repeat Echo periodically for indication of surgical resection. - Patient plans to seek a second opinion from [facility], and we encourage so. CD of CHRISTIANO to be provided to pt. (3) HLD (hyperlipidemia) Current Visit: Yes Status: Chronic recommend statin given aortic plaques Qualifiers: Hyperlipidemia type: unspecified Qualified Code(s): E78.5 - Hyperlipidemia , unspecified Discussion w patient/family: The assessment and plan as outlined above was discussed with the patient and/or family members who expressed understanding and agreement. All questions were answered. Thank you for involving us in the care of your patient. Please call with any questions. History of Present Illness Consult date: 07/13/18 Requesting physician: Ryan Joseph Consult reason: abnormal echo, stroke Chief complaint: dizziness History of present illness: Ms. Porras is a 73 year old female ho HTN, HLD, fibromyalgia, depression. P/w 3 weeks of vertigo and 1 day of N/V./ Found to have ischemia stroke of small area of occipital and R-basal ganglia. Not clear microvascular or embolic etiology. TTE then CHRISTIANO (see formal report) revealed a moblie cord attached to posterior mitral leafleat (P2 likely) moving in LVOT, 1cm in length with a calcified 4x4mm head, no evidence of obstruction. mild to moderate plaque in aortic arch without mobile component. No interatrial shunt on TTE or CHRISTIANO. Pt has no ho cp, palpitations, syncope, LE edema. No ho arrthythmia. Did mention to have a remote "rheumatic fever" and Echo with unremarkable findings (not clear). No known hypercoagulable state. Did have Ob cancer yrs ago s/p surgery. Upon interveiw, no complaints. Vertigo resolved, able to ambulate independently. Pt plans to seek second opinion at [facility] regarding MRI and CHRISTIANO findings. Will provide CD of CHRISTIANO. CHRISTIANO 07/13/18 LVEF 60-65%. Normal LV size and function. Right ventricle was normal in size and systolic function. LA appendage is normal in appearance. Normal inflow and outflow velocities. No thrombus. Mild posterior mitral annular calcification of the mitral valve. There is a small mobile echodensity (4.8 mm x 5.06 mm) that moves from the superior portion of the interventricular septum into the LVOT. It appears to be attached to the mitral valve apparatus, specifically the posterior mitral valve leaflet, and possibly represents a redundant or ruptured chordae tendineae. No pulmonary hypertension identified. No evidence of patent foramen ovale with color Doppler or agitated saline Past Med Surg Social Fam HX - Past Medical History Medical history: arthritis, fibromyalgia, hyperlipidemia, hypertension Psychiatric history: anxiety, depression - Past Surgical History Surgical History: appendectomy, cancer surgery Additional surgical history: ortho surgery - Social History Smoking Status: Never smoker Smokeless Tobacco Status: No Alcohol use: none Drug use: none Medications and Allergies Albuterol Sulfate [Albuterol Inhaler] 2 puff IH QID #1 inhaler 03/15/17 [Rx] Buspirone HCl [Buspar] 15 mg PO BID 03/15/17 [History] LORazepam [Ativan] 0.5 mg PO TID PRN 03/15/17 [History] Losartan Potassium [Cozaar] 100 mg PO DAILY 03/15/17 [History] OxyCODONE/APAP 10/325 [Percocet 10/325 MG] 0.5 - 1 tab PO BID PRN 03/15/17 [ History] Simvastatin [Zocor] 20 mg PO DAILY 03/15/17 [History] hydroCHLOROthiazide [Hydrochlorothiazide] 25 mg PO DAILY 03/15/17 [History] Gabapentin [Neurontin] 300 mg PO BID 07/10/18 [History] Metoprolol Tartrate 50 mg PO TID 07/10/18 [History] Venlafaxine [Effexor] 75 mg PO BID 07/10/18 [History] 3 Allergy/AdvReac Type Severity Reaction Status Date / Time Penicillins [PCN] Allergy Rash Verified 07/10/18 09:16 Sulfa (Sulfonamide Allergy Rash Verified 07/10/18 09:16 Antibiotics) All Systems Review: The remainder of the systems were reviewed and are negative - Cardiovascular Cardiovascular: as per HPI - Gastrointestinal Gastrointestinal: nausea - Neurological Neurological: dizziness - Psychiatric Psychiatric: anxiety, depression Physical Examination Vital Signs, Last 4 Hours Temp Pulse Resp BP Pulse Ox 07/13/18 12:33 98.8 F 78 16 125/63 94 Other: General: NAD, AAO, cogent HEENT: anicteric Neck: no JVD, no bruits Chest: CTA B/L, no W/R/C Heart: RRR, S1/S2, no S3/S4, no M/G/R Abdominal: BS +, soft, ND, NT Peripheral Pulses: radial pulse 2+ B/L, DP 2+ B/L Skin/Extremities: no cyanosis, no LE edema Neurological: grossly non-focal. Results 07/13/18 04:21 07/11/18 02:50 Lab Results 07/13/18 07/13/18 04:21 04:21 WBC 7.8 Hgb 13.0 Hct 39.1 Plt Count 181 INR 1.1 - Imaging and Cardiology Echo: report reviewed, image reviewed Holter: other (Tele no events, SR.) Consult Discharge Plan - Plan Referrals: Kenneth Nathan DO [Primary Care Provider] - 07/20/18 1:00 pm
== END 2018-07-13 18:18 | disposition home or self-care (01) | DRG 65 ==
LOC: EMEROOARM 03:19 → 3BNU 03:19 → SUATTDRO 11:02
PROVIDERS: ADMIT Pediatrics; ATTEND Internal Medicine

== ENCOUNTER 2020-10-13 10:42 | Inpatient (IN) ==
[2020-10-13] MEDS ORDERED: 0.9 % Sodium Chloride 1,000 ML IVC ONE ×2 (11:06→13:35)
[2020-10-13 11:24] LABS: Basophils % 0.2 %; Hematocrit 42.2 % (35.3-44.9); Hemoglobin 14.1 g/dL (11.5-15.4); Immature Granulocytes % 0.5 % (0-4); Lymphocytes # 0.9 K/mcL (0.6-4.6); Lymphocytes % 8.2 %; Mean Corpuscular HGB Conc 33.4 g/dL (31.6-35.5); Mean Corpuscular Hemoglobin 29.7 pg (28.0-33.3); Mean Corpuscular Volume 88.8 fL (83.0-100.0); Mean Platelet Volume 11.3 fL (9.4-12.4); Monocytes # 0.4 K/mcL (0.0-1.3); Monocytes % 3.7 %; Neutrophils # 9.1 K/mcL (1.6-8.9); Platelet Count 227 K/mcL (140-400); Red Blood Count 4.75 M/mcL (3.82-4.97); Segmented Neutrophils % 87.4 %; White Blood Count 10.4 K/mcL (4.3-11.1)
[2020-10-13 11:25] LABS: INR 1.3; Prothrombin Time 14.6 Seconds (9.4-12.1)
[2020-10-13] MEDS ORDERED: Cefepime HCl 2,000 MG in Water for inj. (sterile) 20 ML IVP STA (11:36)
[2020-10-13] MEDS ORDERED: Isovue-370 500 ML BOTTLE IVP ONE (11:56)
[2020-10-13] MEDS ORDERED: Vancomycin 1,250 MG/262.5 ML IV.SOLN IVPB ONE (12:00)
[2020-10-13 12:03] LABS: Albumin 3.8 g/dL (3.5-5.7); Albumin/Globulin Ratio 0.9 (1.1-2.2); Bilirubin,Direct 0.3 mg/dL (0.0-0.2); Bilirubin,Indirect 0.7 mg/dL (0.0-1.0); Calcium 8.9 mg/dL (8.6-10.3); Globulin 4.2 g/dL (2.4-3.5); Magnesium 1.5 mg/dL (1.6-2.6); Phosphorous 1.8 mg/dL (2.7-4.5); Potassium 3.2 mEq/L (3.5-5.1); Troponin I 0.04 ng/mL (< 0.04)
[2020-10-13 12:28] LABS: Amorphous Sediment,Urine Few per hpf (None-Few); Bilirubin,Urine Negative (Negative); Blood,Urine Small (Negative); Clarity,Urine Turbid (Clear); Color,Urine Yellow (Yellow); Glucose,Urine (UA) Normal (Normal); Ketones,Urine Trace mg/dL (Negative); Leukocyte Esterase,Urine Negative (Negative); Nitrite,Urine Negative (Negative); Protein,Urine 70 mg/dL (Neg-Trace); RBC,Urine 0-3 per hpf (0-3); Squamous Epithelial Cell,Urine Few per hpf (None-Few); WBC,Urine 0-3 per hpf (0-3)
[2020-10-13] MEDS ORDERED: Dexamethasone 4 MG/ML VIAL IVP ONE (12:53)
[2020-10-13 13:06] LABS: Adenovirus Not Detected (Not Detect); Coronavirus 229E Not Detected (Not Detect); Coronavirus HKU1 Not Detected (Not Detect); Coronavirus NL63 Not Detected (Not Detect); Coronavirus OC43 Not Detected (Not Detect)
[2020-10-13 13:08] LABS: Bordetella Pertussis Not Detected (Not Detect); Chlamydophila pneumoniae Not Detected (Not Detect); Human Metapneumovirus Not Detected (Not Detect); Human Rhinovirus/Enterovirus Not Detected (Not Detect); Influenza A Subtype 2009 H1 Not Detected (Not Detect); Influenza B Not Detected (Not Detect); Mycoplasma pneumoniae Not Detected (Not Detect); Parainfluenza Virus 1 Not Detected (Not Detect); Parainfluenza Virus 2 Not Detected (Not Detect); Parainfluenza Virus 3 Not Detected (Not Detect); Parainfluenza Virus 4 Not Detected (Not Detect); Respiratory Syncytial Virus Not Detected (Not Detect); SARS-CoV-2 DETECTED (Not Detect)
[2020-10-13] MEDS ORDERED: Naloxone 0.4 MG/ML INJ IVP PRN (13:54)
[2020-10-13] MEDS ORDERED: Ondansetron 4 MG/2 ML VIAL IVP PRN (13:54)
[2020-10-13] MEDS ORDERED: Potassium Phosphate 44 MEQ in 0.9 % Sodium Chloride 250 ML IVPB ONE (13:57)
[2020-10-13] MEDS: Azithromycin 500 MG in 0.9 % Sodium Chloride 250 ML IVPB SCH (17:20)
[2020-10-13] MEDS: Cefepime HCl 1,000 MG in 0.9 % Sodium Chloride Mini Bag 100 ML IVPB SCH (19:55)
[2020-10-13] MEDS: 0.9 % Sodium Chloride 1,000 ML IVC SCH ×2 (19:55→22:29)
[2020-10-13] MEDS: Gabapentin 300 MG CAPSULE PO SCH (19:56)
[2020-10-13] MEDS ORDERED: Acetaminophen 325 MG TABLET PO ONE (22:28)
[2020-10-13] MEDS ORDERED: *HR* OxyCODONE/APAP 10/325 TABLET PO PRN (23:50)
[2020-10-14] MEDS: *HR* LORazepam 1 MG TABLET PO PRN ×2 (00:13→18:51)
[2020-10-14] MEDS: Cefepime HCl 1,000 MG in 0.9 % Sodium Chloride Mini Bag 100 ML IVPB SCH ×3 (03:16→19:41)
[2020-10-14] MEDS: 0.9 % Sodium Chloride 1,000 ML IVC SCH (03:34)
[2020-10-14] MEDS: *HR* Enoxaparin 40 MG/0.4 ML SYRINGE SQ SCH (05:45)
[2020-10-14 07:23] LABS: Basophils % 0.1 %; Hematocrit 36.1 % (35.3-44.9); Immature Granulocytes % 0.7 % (0-4); Lymphocytes # 0.7 K/mcL (0.6-4.6); Lymphocytes % 8.4 %; Mean Corpuscular HGB Conc 32.7 g/dL (31.6-35.5); Mean Corpuscular Hemoglobin 29.4 pg (28.0-33.3); Mean Corpuscular Volume 89.8 fL (83.0-100.0); Mean Platelet Volume 10.8 fL (9.4-12.4); Monocytes # 0.5 K/mcL (0.0-1.3); Monocytes % 6.3 %; Platelet Count 183 K/mcL (140-400); Red Blood Count 4.02 M/mcL (3.82-4.97); Red Cell Distribution Width 13.2 % (11.5-14.5); Segmented Neutrophils % 84.5 %; White Blood Count 8.2 K/mcL (4.3-11.1)
[2020-10-14 07:32] LABS: Hemoglobin 11.8 g/dL (11.5-15.4); INR 1.2; Prothrombin Time 14.1 Seconds (9.4-12.1)
[2020-10-14] MEDS ORDERED: 0.9 % Sodium Chloride 1,000 ML IVC SCH (07:43)
[2020-10-14] MEDS: Gabapentin 300 MG CAPSULE PO SCH ×2 (08:12→19:42)
[2020-10-14 10:18] LABS: BUN/Creatinine Ratio 18 (6-26); Blood Urea Nitrogen 15 mg/dL (8-23); Calcium 7.2 mg/dL (8.6-10.3); Carbon Dioxide 20 mEq/L (23-29); Chloride 106 mEq/L (98-107); Glucose 114 mg/dL (70-105); Osmolality,Calculated 282 (280-300); Potassium 3.5 mEq/L (3.5-5.1); Sodium 135 mEq/L (136-145); eGFR For African Americans > 60 (> 60); eGFR For Non-African Americans > 60 (> 60)
[2020-10-14] MEDS ORDERED: *HR* OxyCODONE/APAP 5/325 TABLET PO PRN (10:31)
[2020-10-14] MEDS: Azithromycin 500 MG in 0.9 % Sodium Chloride 250 ML IVPB SCH (14:27)
[2020-10-14] MEDS ORDERED: Acetaminophen 325 MG TABLET PO PRN (20:11)
[2020-10-15] MEDS: Cefepime HCl 1,000 MG in 0.9 % Sodium Chloride Mini Bag 100 ML IVPB SCH ×2 (03:23→12:11)
[2020-10-15] MEDS: *HR* Enoxaparin 40 MG/0.4 ML SYRINGE SQ SCH (03:23)
[2020-10-15 07:14] LABS: Hematocrit 32.2 % (35.3-44.9); Hemoglobin 10.7 g/dL (11.5-15.4); Mean Corpuscular HGB Conc 33.2 g/dL (31.6-35.5); Mean Corpuscular Hemoglobin 30.1 pg (28.0-33.3); Mean Corpuscular Volume 90.4 fL (83.0-100.0); Mean Platelet Volume 10.6 fL (9.4-12.4); Platelet Count 202 K/mcL (140-400); Red Blood Count 3.56 M/mcL (3.82-4.97); Red Cell Distribution Width 13.5 % (11.5-14.5); White Blood Count 7.3 K/mcL (4.3-11.1)
[2020-10-15 07:25] LABS: BUN/Creatinine Ratio 14 (6-26); Blood Urea Nitrogen 11 mg/dL (8-23); Calcium 7.3 mg/dL (8.6-10.3); Carbon Dioxide 20 mEq/L (23-29); Chloride 106 mEq/L (98-107); Glucose 88 mg/dL (70-105); Magnesium 1.9 mg/dL (1.6-2.6); Osmolality,Calculated 277 (280-300); Phosphorous 1.7 mg/dL (2.7-4.5); Potassium 2.8 mEq/L (3.5-5.1); Sodium 134 mEq/L (136-145); eGFR For African Americans > 60 (> 60); eGFR For Non-African Americans > 60 (> 60)
[2020-10-15] MEDS ORDERED: Potassium Chloride Elixir 20 MEQ/15 ML UDC PO ONE (07:43)
[2020-10-15] MEDS: Gabapentin 300 MG CAPSULE PO SCH (07:48)
[2020-10-15 12:18] VITALS: BP 102/62
[2020-10-15] MEDS ORDERED: Potassium Phosphate 44 MEQ in 0.9 % Sodium Chloride 250 ML IVPB ONE (13:10)
== END 2020-10-15 16:57 | disposition critical access hospital (66) | DRG 871 ==
LOC: 2NENU 10:42 → EMEROOARM 10:42 → SUATTDRO 15:47 → 2NENU 19:02 → 3BNU 10-14 18:15
PROVIDERS: ADMIT Internal Medicine; ATTEND Internal Medicine